=== PATIENT | female | born 1955 | race Caucasian/White ===

== ENCOUNTER 2017-05-24 10:20 | Emergency (ER) | payer OTHER ==
[2017-05-24] MEDS ORDERED: Meclizine HCl 25 MG TAB ONE (10:49)
== END 2017-05-24 11:25 | disposition home or self-care (01) ==
LOC: BURERS 10:20
DX: H81.13 Benign paroxysmal vertigo, bilateral (principal); K21.9 Gastro-esophageal reflux disease without esophagitis; G43.909 Migraine, unspecified, not intractable, without status migrainosus; J45.909 Unspecified asthma, uncomplicated; F32.9 Major depressive disorder, single episode, unspecified
CPT/HCPCS: 93005

== ENCOUNTER 2018-09-23 15:36 | Outpatient (CLI) | payer MEDICARE ==
--- NOTE | 2018-09-23 18:44 | RAD ---
RIGHT FOOT THREE VIEWS: 09/23/18 There has been a prior bunionectomy of the first metatarsal head and presumed osteotomy. Some degener ative changes are seen in the first metatarsophalangeal joint. No acute fracture was seen. There is a little bony density to the medial side of the first cuneiform. There are probably degenerative gong es in that first tarsometatarsal joint. No periosteal reaction was seen. IMPRESSION: Chronic changes, particularly involving the area around the first metatarsophalangeal joint. No acute findings. POS: HOME
== END 2018-09-23 15:37 | disposition home or self-care (01) ==
LOC: BURRAD 15:36
PROVIDERS: ATTEND Nurse Practitioner Family
DX: M79.671 Pain in right foot (principal)